=== PATIENT | male | born 2000 | race Caucasian/White ===

== ENCOUNTER 2018-03-31 05:50 | Observation (INO) ==
--- OUTSIDE RECORDS SUMMARY | 2018-03-31 06:25 | External Medical Summary | Continuity of Care Document ---
:2000 Author Organization [facility] Allergies Active Description Code Type Severity Reaction Onset Reported/ Identified Relationship Clinical to Patient Status Yes No Known NKMA N/A N/A 04/11/2014 Medication Allergies Medications Medication Packaging Start Stop Route Dosage Sig Date Date 1 caps 02/29/20 Oral 70 mg 1 lisdexamfetamine( 4 14 caps, Oral, Vyvanse 70 mg qAM, take 5-7 oral capsule) days a week as needed, 30 caps 1 caps 04/07/20 Oral 70 mg 1 lisdexamfetamine( 4 14 caps, Oral, Vyvanse 70 mg qAM, take 5-7 oral capsule) days a week as needed, 30 caps 1 caps 04/11/20 Oral 70 mg 1 lisdexamfetamine( 4 14 caps, Oral, Vyvanse 70 mg qAM, take 5-7 oral capsule) days a week as needed, 30 caps 1 sprays Nasal 1 mometasone 4 sprays, nasal(Nasonex 50 Nasal, Daily, mcg/inh nasal 17 g, PRN: as spray) needed for allergy symptoms 09/19/19 albuterol(Ventoli 4 15 See n HFA 90 mcg/inh Instructions, inhalation 4-6 puff by aerosol) inhalation every 3-4 hrs, 2 Each 1 caps 05/15/20 Oral 70 mg 1 lisdexamfetamine( 4 14 caps, Oral, Vyvanse 70 mg qAM, take 5-7 oral capsule) days a week as needed, 30 caps 09/19/19 methylphenidate(m 4 15 See ethylphenidate 5 Instructions, mg oral tablet) 1 tabs Orally at 6 pm, 30 tabs 1 caps 06/14/20 Oral 70 mg 1 lisdexamfetamine( 4 14 caps, Oral, Vyvanse 70 mg qAM, take 5-7 oral capsule) days a week as needed, 30 caps 2 puffs 02/29/20 Inhalation 2 albuterol(Ventoli 5 16 puffs, n HFA 90 mcg/inh Inhalation, inhalation q4hr, 2 Each, aerosol) 1 Refill(s) 1 tabs 09/10/19 Oral 1 dextromethorphan- 5 16 tabs, Oral, guaiFENesin(Mucin q12hr ex DM) 09/10/19 Oral 30 mg dextromethorphan( 5 16 30 mg, Oral, DayQuil Cough) q8hr 1 tabs 01/12/20 Oral 1 amoxicillin-clavu 5 15 tabs, Oral, lanate(Augmentin q12hr, 20 875 mg-125 mg tabs oral tablet) 1 caps 09/24/19 Oral 70 mg lisdexamfetamine( 6 16 70 mg=1 caps, Vyvanse 70 mg Oral, qAM, 7 oral capsule) caps, 0 Refill(s) 1 caps 04/10/20 Oral 70 mg lisdexamfetamine( 6 16 70 mg=1 caps, Vyvanse 70 mg Oral, qAM, 30 oral capsule) caps, 0 Refill(s) 0.5 mL 02/29/20 IntraMuscular meningococcal 6 16 0.5 mL, conjugate IntraMuscular vaccine(Menveo , Once intramuscular injection) 0.5 mL 02/29/20 IntraMuscular tetanus/diphth/pe 6 16 0.5 mL, rtuss (Tdap) IntraMuscular adult/adol(tetanu , Once s/diphth/pertuss (Tdap) adult/adol 5 units-2.5 units-18.5 mcg/0.5 mL intramuscular suspension) 2 puffs Inhalation 2 albuterol(Ventoli 6 puffs, n HFA 90 mcg/inh Inhalation, inhalation q6hr, 1 Each, aerosol) 1 Refill(s) 1 caps 08/26/19 Oral 70 mg lisdexamfetamine( 6 17 70 mg=1 caps, Vyvanse 70 mg Oral, qAM, 30 oral capsule) caps, 0 Refill(s) 1 caps 08/26/19 Oral 70 mg lisdexamfetamine( 7 17 70 mg=1 caps, Vyvanse 70 mg Oral, qAM, oral capsule) for 30 days, 30 caps, 0 Refill(s) 1 caps 10/08/19 Oral 70 mg lisdexamfetamine( 7 17 70 mg=1 caps, Vyvanse 70 mg Oral, qAM, oral capsule) for 30 days, 30 caps, 0 Refill(s) 2 tabs 09/09/19 Oral 40 mg predniSONE(predni 7 17 40 mg=2 tabs, SONE 20 mg oral Oral, Daily, tablet) for 5 days, 10 tabs, 0 Refill(s) 1 packets 09/04/19 Oral 1 azithromycin(Zith 7 17 packets, romax 250 mg oral Oral, Once, tablet) as directed on package labeling, 6 tabs, 0 Refill(s) 2 puffs Inhalation 2 albuterol(Ventoli 7 puffs, n HFA 90 mcg/inh Inhalation, inhalation q4hr, PRN: as aerosol) needed for wheezing, 1 inhalers, 3 Refill(s) 1 caps 03/10/20 Oral 70 mg lisdexamfetamine( 7 17 70 mg=1 caps, Vyvanse 70 mg Oral, qAM, oral capsule) for 30 days, 30 caps, 0 Refill(s) 1 caps 06/12/20 Oral 70 mg lisdexamfetamine( 7 17 70 mg=1 caps, Vyvanse 70 mg Oral, qAM, oral capsule) for 30 days, 30 caps, 0 Refill(s) 1 caps 07/12/20 Oral 70 mg lisdexamfetamine( 7 17 70 mg=1 caps, Vyvanse 70 mg Oral, qAM, oral capsule) for 30 days, 30 caps, 0 Refill(s) Problems Date Dx Attending Type Code Diagnosis Diagnosed By Coded 07/08/2016 Benito Javed Final 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 07/08/2016 Benito Javed Final J00 Acute nasopharyngitis [common cold] 08/26/2016 Benito Javed Final F90.8 Attention-deficit hyperactivity disorder, other type 09/04/2016 Benito Javed Final H66.91 Otitis media, unspecified, right ear 09/04/2016 Benito Javed Final J20.8 Acute bronchitis due to other specified organisms 09/04/2016 Benito Javed Final J45.40 Moderate persistent asthma, uncomplicated 01/12/2017 Benito Javed Final 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 04094 Immunization 02/29/2016 administration (includes percutaneous, intradermal, subcutaneous, or intramuscular injections); each additional vaccine (single or combination vaccine/toxoid) (List separately in addition 02492 Tetanus, 02/29/2016 diphtheria toxoids and acellular pertussis vaccine (Tdap), when administered to individuals 7 years or older, for intramuscular use 37202 Meningococcal 02/29/2016 conjugate vaccine, serogroups A, C, Y and W-135, quadrivalent (MenACWY), for intramuscular use 81307 Office or 02/29/2016 other outpatient visit for the evaluation and management of an established patient, which requires at least 2 of these 3 armstrong components: A detailed history; A detailed examination; Medical d 77402 Office or 07/08/2016 other outpatient visit for the evaluation and management of an established patient, which requires at least 2 of these 3 armstrong components: A detailed history; A detailed examination; Medical d 45745 Office or 08/26/2016 other outpatient visit for the evaluation and management of an established patient, which requires at least 2 of these 3 armstrong components: An expanded problem focused history; An expanded prob 71511 Office or 09/04/2016 other outpatient visit for the evaluation and management of an established patient, which requires at least 2 of these 3 armstrong components: A detailed history; A detailed examination; Medical d 57355 Office or 01/12/2017 other outpatient visit for the evaluation and management of an established patient, which requires at least 2 of these 3 armstrong components: An expanded problem focused history; An expanded prob 90919 Office or 06/12/2017 other outpatient visit for the evaluation and management of an established patient, which requires at least 2 of these 3 armstrong components: A detailed history; A detailed examination; Medical d <section xmlns="urn:[email or web address]-org:v3" xmlns:xsi="[email or web address]/ 2001/XMLSchema-instance"> <templateId root=" 2.16.840.1.837401.10.20.22.2.3" /> <templateId root=" 2.16.840.1.799494.10.20.22.2.3.1" /> <code codeSystemName=" LOINC" codeSystem="2.16.840.1.322835.6.1" code="33883-1&quot ; displayName="Results" /> <title>Results</title> &lt ;text> <table> <thead> <tr> <th& gt;Test</th> <th>Result</th> <th>Range </th> </tr> </thead> <tbody> &lt ;tr> <th colspan="10">GONORRHOEA DNA BY PCR - CHLAMYDIA DNA BY PCR - 07/11/15 19:40</th> </tr> < tr> <td>Microbiology</td> <td></td&gt ; <td /> </tr> <tr> <th colspan="10">HIV - 07/11/15 20:45</th> </tr> <tr> <td>AB HIV 1 2</td> <td> NEGATIVE </td> <td>NEGATIVE</td> </tr> <tr> <td>HIV 1 P24 AG</td> <td> NEGATIVE </td> <td>NEGATIVE</td> </tr> <tr> <th colspan="10">RAPID PLASMA REAGIN - 08:24</th> </tr> <tr> <td> RAPID PLASMA REAGIN</td> <td>NONREACTIVE </td> <td>NONREACTIVE</td> </tr> </tbody> & lt;/table> </text> <entry> <organizer moodCode="EVN& quot; classCode="BATTERY"> <templateId root=" [id number]2.4.1" /> <id nullFlavor="NA&quot ; /> <code codeSystem="local" code="GC" displayName="GONORRHOEA DNA BY PCR - CHLAMYDIA DNA BY PCR" /> <statusCode code="completed" /> <component> & lt;observation moodCode="EVN" classCode="OBS"> & lt;templateId root="2.16.840.1.443763.10.20.22.4.2" /> < id nullFlavor="NA" /> <code codeSystem="local&quot ; code="MB" displayName="Microbiology" /> < statusCode code="completed" /> <effectiveTime value=& quot;[id number]" /> <value xsi:type="ST" value=& quot;<pre><b>GONORRHOEA DNA BY PCR - CHLAMYDIA DNA BY PCR</b> See BelowGONORRHOEA DNA BY PCR(F) Luis F Date/Time: 07/11/2015 19:40 Teja Date/Time: 07/12/2015 14:13SOURCE: URINESPEC DESC: [facility] [place] [id number] BelowCHLAMYDIA DNA BY PCR(F) Luis F Date/Time: 07/11/2015 19:40 Teja Date/Time: 07/12/2015 14:13SOURCE: URINESPEC DESC: [facility] [place] [id number]</pre>" /> <referenceRange&gt ; <observationRange> <text /> &lt ;/observationRange> </referenceRange> </observation& gt; </component> </organizer> </entry> <entry&gt ; <organizer moodCode="EVN" classCode="BATTERY"> <templateId root="2.16.840.1.322304.10.20.22.4.1" /> & lt;id nullFlavor="NA" /> <code codeSystem="local&quot ; code="HIV" displayName="HIV" /> <statusCode code="completed" /> <component> <observation moodCode="EVN" classCode="OBS"> <templateId root="2.16.840.1.103876.10.20.22.4.2" /> <id nullFlavor ="NA" /> <code codeSystem="local" code=" [id number]" displayName="AB HIV 1 2" /> < statusCode code="completed" /> <effectiveTime value=& quot;[id number]" /> <value unit="" xsi:type=& quot;PQ"value="NEGATIVE" /> <referenceRange> <observationRange> <text>NEGATIVE</text&gt ; </observationRange> </referenceRange> & lt;/observation> </component> <component> < observation moodCode="EVN" classCode="OBS"> < templateId root="2.16.840.1.063742.10..22.4.2" /> < id nullFlavor="NA" /> <code codeSystem="local" code=& quot;[id number]" displayName="HIV 1 P24 AG" /> < statusCode code="completed" /> <effectiveTime value=& quot;[id number]" /> <value unit="" xsi:type=& quot;PQ" value="NEGATIVE" /> <referenceRange> <observationRange> <text>NEGATIVE</text> </observationRange> </referenceRange> </ observation> </component> </organizer> </entry> & lt;entry> <organizer moodCode="EVN" classCode="BATTERY& quot;> <templateId root="2.16.840.1.831878.10.20.22.4.1" /& gt; <id nullFlavor="NA" /> <code codeSystem=" local" code="RPR" displayName="RAPID PLASMA REAGIN" /& gt; <statusCode code="completed" /> <component> <observation moodCode="EVN" classCode="OBS"> <templateId root="2.16.840.1.419362.10.20.22.4.2" /> <id nullFlavor="NA" /> <code codeSystem=& quot;local" code="RPR" displayName="RAPID PLASMA REAGIN&quot ; /> <statusCode code="completed" /> < effectiveTime value="[id number]" /> <value unit=&quot ;" xsi:type="PQ" value="NONREACTIVE" /> &lt ;referenceRange> <observationRange> <text> NONREACTIVE</text> </observationRange> </ referenceRange> </observation> </component> </ organizer> </entry></section> Encounters ACCT No. Visit Discharge Status Pt. Type Provider Facility Loc./Unit Complaint Date/Time [id number] 06/12/2017 06/12/2017 [facility] Outpatient [facility], [facility] med check 67 08:27:00 23:59:00 [facility] [id number] 01/12/2017 01/12/2017 [facility] Outpatient [facility], [facility] ADHD F/U 39 09:42:00 23:59:00 [facility] [id number] 09/04/2016 09/04/2016 [facility] Outpatient [facility], [facility] ear 12 13:53:00 23:59:[address] [facility] infection. Clinic URI [id number] 08/26/2016 08/26/2016 [facility] Out[facility], [facility] TCPA ADD 66 16:10:00 23:59:00 [facility] [id number] 07/08/2016 07/08/2016 [facility] Outpatient [facility]ck, [facility] NPV 01 08:27:00 23:59:00 [facility] [id number] 02/29/2016 02/29/2016 [facility] Outpatient Patron, [facility] med check 73 14:37:00 23:59:00 [facility] [id number] 09/10/2015 09/10/2015 [facility] Outpatient [facility]ron, [facility] Med check 99 10:52:00 23:59:00 [facility] [id number] 09/19/2014 09/19/2014 [facility] Outpatient Patron, [facility] Med check 16 10:38:00 23:59:00 [facility] [id number] 06/13/2017 Document 1813 05:18:13 Registrati on [id number] 01/02/2015 Document 58 09:18:00 Registrati on [id number] 12/22/2014 Document 40 14:32:00 Registrati on [id number] 11/28/2014 Document 03 09:10:00 Registrati on [id number] 07/11/2015 07/11/2015 DIS Outpatient [facility] 23 17:53:00 17:53:00 Nancy ECHOLS [id number] 01/13/2017 Document 1630 05:16:30 Registrati on [id number] 09/05/2016 Document 1702 05:17:02 Registrati on [id number] 08/27/2016 Document 1756 05:17:56 Registrati on [id number] 07/09/2016 Document 1639 05:16:39 Registrati on [id number] 03/01/2016 Document 1548 05:15:48 Registrati on [id number] 09/11/2015 Document 1737 05:17:37 Registrati on [id number] 06/13/2015 Document 2253 12:22:53 Registrati on [id number] 06/13/2015 Document 0858 12:08:58 Registrati on [id number] 06/13/2015 Document 0302 11:03:02 Registrati on [id number] 06/13/2015 Document 1150 10:11:50 Registrati on [id number] 06/13/2015 Document 5413 09:54:13 Registrati on [id number] 06/13/2015 Document 3304 09:33:04 Registrati on [id number] 06/13/2015 Document 1027 09:10:27 Registrati on
[2018-03-31] MEDS ORDERED: MORPHINE SULFATE 4mg INJECTION IVP ONE (06:36)
[2018-03-31] MEDS ORDERED: ONDANSETRON 4 MG/2 ML INJECTION IVP ONE (06:36)
--- NOTE | 2018-03-31 06:43 | Emergency Department Report ---
General Adult HPI - General Chief complaint: Abdominal Pain Stated complaint: abd pain Time Seen by Provider: 03/31/18 06:10 Source: patient Mode of arrival: ambulatory Limitations: no limitations - History of Present Illness HPI narrative: 18 M presents to the emergency department for reevaluation of upper abdominal discomfort. Patient states that he has been expressing intermittent symptoms for the past month while at home. Symptoms will normally last around 2-3 hours and then resolve on their own. Patient does not that he did eat pizza and cheese burgers yesterday afternoon/evening. Pain is rated at 8/10. Pain is sharp. Pain improves with analgesia. He was at home when his symptoms began around 10 PM yesterday evening. Symptoms have been persistent in nature since onset. No other complaints or associated symptoms. Patient describes the pain as located in the epigastric region. He denies any trauma, travel, or poorly prepared food. - Related Data Home Medications Medication Instructions Recorded Confirmed Albuterol Sulfate 1.25 mg IH PRN #0 01/26/10 03/31/18 Lisdexamfetamine Dimesylate 70 mg PO DAILY #0 05/23/03/31/18 [Vyvanse] Previous Rx's Medication Instructions Recorded Hydrocodone/APAP 5/325 [[employer] 1 tab PO Q6H PRN #20 tab 03/31/18 5/325] Allergies Allergy/AdvReac Type Severity Reaction Status Date / Time No Known Drug Allergies Allergy Unknown Unverified 03/31/18 07:16 Review of Systems Constitutional: Denies: fever, chills Eyes: Denies: eye pain, vision change ENT: Denies: ear pain, throat pain Cardiovascular: Denies: chest pain, palpitations Respiratory: Denies: cough, dyspnea Gastrointestinal: Reports: abdominal pain. Denies: nausea, vomiting, diarrhea Genitourinary: Denies: urgency, dysuria Musculoskeletal: Denies: back pain, arthralgia Integumentary: Denies: erythema, rash Neurological: Denies: headache, numbness, paresthesias Psychiatric: Denies: anxiety, depression Endocrine: Denies: polydipsia, polyuria Hematological/Lymphatic: Denies: easy bruising, lymphadenopathy Allergic/Immunologic: Denies: facial swelling, urticaria PFSH Medical History Updates: ADHD Surgical History: Denied by patient. Family History: Reviewed and Noncontributory. - Social History Smoking status: Current every day smoker Substance use type: does not use Alcohol intake frequency: does not drink Physical Exam - Limitations Limitations: no limitations - General General appearance: alert, in no apparent distress - Normal Exams: Head:: Normocephalic without trauma Eyes:: Pupils are PERRLA w/ EOMI, No scleral icterus, irritation, or foreign bodies noted ENMT:: No facial trauma, nasal exudates, pharyngeal erythema, or exudates are noted Dental: No fractured, loose, or missing teeth noted Neck:: Full range of motion, without adenopathy, JVD, bruits or thyromegaly Chest/Respirations:: Clear all howell, with good airflow, and symmetry bilaterally Cardiovascular:: Regular rate and rhythm, without murmur or gallop, Pulses 2+ all extremities, capillary refill, <2 seconds all extremities Abdomen:: Bowel sounds positive (Soft. Epigastric/right upper quadrant tenderness to palpation without rebound or guarding. No CVAT.), non-distended, no hepatosplenomegaly, masses or bruits noted Lymphatic:: No lymphadenopathy, or lymphedema noted Musculoskeletal:: No tenderness, or deformity noted, good range of motion, all extremities Integumentary:: No rashes, hives, or bruising noted, hair and nails, without abnormality Neurological:: Patient is alert, and oriented, cranial nerves, motor/sensory/ cerebellar, exams w/o gross deficits, to observation Psychiatric:: Patient exhibits, appropriate attention, emotion and affect Course Vital Signs Temperature 97.4 F 03/31/18 05:52 Pulse Rate 83 03/31/18 05:52 Respiratory Rate 22 03/31/18 05:52 Blood Pressure 139/73 03/31/18 05:52 Pulse Oximetry 98 03/31/18 05:52 Temperature 98 F 03/31/18 08:31 Pulse Rate 58 L 03/31/18 08:31 Respiratory Rate 16 03/31/18 08:31 Blood Pressure 128/70 03/31/18 08:31 Pulse Oximetry 100 03/31/18 08:31 Medical Decision Making - MDM Narrative Medical decision making narrative: Labs / imaging were discussed in detail with the patient and family and questions are answered. Patient was given parental narcotic and antiemetic medication intravenously with improvement of symptoms. Patient was made nothing by mouth in the emergency department. He was given Invanz 1 g intravenously times one. Patient was discussed with Dr. Abdul who agrees to accept the patient to his service for further evaluation and treatment. Patient and family are in agreement with using Dr. Abdul as the general surgeon. Patient is admitted to the service of general surgery in improved condition. No further orders from accepting physician who is in agreement with the current plan of management. - Differential Diagnosis Cholelithiasis, acute cholecystitis, metabolic disorder, pancreatitis - Lab Data Lab Results 03/31/18 03/31/18 Range/Units 00:08 06:55 Troponin I < 0.012 (0-0.12) ng/ml Specimen Hemolysis < 15 (0-25) Ur Collection Type Urine, void-cc/notcc Urine Color Yellow (YELLOW) Urine Clarity Cloudy Urine pH 7.0 (5.0-8.0) Ur Specific [place] 1.010 L (1.015-1.025) Urine Protein Negative (NEGATIVE) Urine Glucose (UA) Negative (NEGATIVE) Urine Ketones Negative (NEGATIVE) Urine Occult Blood 1+ A (NEGATIVE) Urine Nitrate Negative (NEGATIVE) Urine Bilirubin Negative (NEGATIVE) Urine Urobilinogen 0.2 (NORMAL) EU/DL Ur Leukocyte Esterase Negative (NEGATIVE) Urine RBC 1-3 (0-3) /HPF Urine WBC None seen (0-5) /HPF Ur Squamous Epith Cells 0-5 Amorphous Sediment Many Urine Bacteria Trace H (NEGATIVE) Ur Culture Indicated? Cult not indicated - Radiology Data RUQ US - findings concerning for acute cholecystitis. Recommend surgical consultation. - EKG Data EKG #1 EKG results narrative: Sinus rhythm. 68 bpm. No STEMI. Early repolarization noted. Disposition Clinical Impression: Acute cholecystitis Disposition: 02 To [facility] Condition: Improved Time of Disposition: 07:46 - Seen By: physician
[2018-03-31] MEDS: SALINE FLUSH 10ml SYRINGE IV PRN ×2 (06:46→06:48)
--- NOTE | 2018-03-31 07:50 | Ultrasound Report ---
Indication: Epigastric Pain PROCEDURE: US gall bladder: Encounter: Initial Comparison: None Technique: Grayscale and color Doppler sonographic imaging of the right upper quadrant of the abdomen was performed. Findings: Hepatic parenchyma is homogeneous without evidence for focal mass. The gallbladder is abnormal with numerous shadowing gallstones and wall thickening and edema up to 5 mm. Sonographic Dye's sign cannot be well evaluated due to pain medication. Both the intra and extrahepatic biliary system are of normal caliber with the common duct measuring 5 mm in dimension. Visualized portions of the head and body of the pancreas are unremarkable. The right kidney is present without collecting system dilatation. The right kidney measures 11.6 cm in length. Impression: Acute cholecystitis. Surgical consultation is recommended. .
[2018-03-31] MEDS ORDERED: FentaNYL 100 MCG/2 ML INJECTION IVP ONE ×2 (07:52→08:01)
[2018-03-31] MEDS ORDERED: ERTAPENEM 1 G in NS 100 ML IV ONE (08:01)
[2018-03-31] MEDS ORDERED: NS FLUSH BAG 500ml IV PRN (08:22)
[2018-03-31] MEDS ORDERED: ONDANSETRON 4 MG/2 ML INJECTION IVP PRN ×2 (09:21→16:20)
[2018-03-31] MEDS ORDERED: D5-1/2NS with KCL 20mEq 1,000 ML IV SCH (09:21)
[2018-03-31] MEDS ORDERED: PROMETHAZINE 25 MG INJECTION IVP PRN (09:21)
[2018-03-31] MEDS ORDERED: MORPHINE SULFATE 10mg/ml INJECTION IV PRN (09:21)
[2018-03-31 09:25] VITALS: BMI 38.9
[2018-03-31] MEDS: HYDROMORPHONE 2 MG/ML INJECTION IVP PRN ×3 (09:53→20:06)
--- NOTE | 2018-03-31 10:42 | History and Physical ---
HISTORY OF PRESENT ILLNESS This patient is 18 years old. This patient developed the onset of some right upper quadrant abdominal pain about one month ago. He has had intermittent right upper quadrant abdominal pain since then. The episodes of intermittent right upper quadrant abdominal pain have usually lasted for around two or three hours and then resolve on their own. The patient did experience the onset of a more severe episode of right upper quadrant abdominal pain at 10:00 p.m. on 02/2018. The patient did come to [facility] emergency room during the night on 03/30/2018. He underwent evaluation. He had a CT scan. He then went home. He then returned back to the emergency room again for further evaluation. A gallbladder sonogram was performed at the time of the second emergency room visit at [facility] emergency room. This gallbladder sonogram was performed on 03/31/2018. The gallbladder sonogram shows findings consistent with acute cholecystitis. The patient has received intravenous analgesics at the emergency room and the pain has been so severe that it has been difficult to control the right upper quadrant abdominal pain with the intravenous narcotic analgesics. The patient continues to have some right upper quadrant abdominal pain. He has nausea. He has had no vomiting. He has had no diarrhea. He has had no radiation of pain to his back. PAST MEDICAL HISTORY Previous Operations: None. Other Current Medical Problems: 1. Asthma. 2. Attention deficit hyperactivity disorder. CURRENT MEDICATIONS 1. Vyvanse 70 mg one capsule p.o. daily in a.m. 2. Albuterol inhaler used p.r.n. The patient states that he seldom uses this. ALLERGY HISTORY The patient states he has no known allergies to medications. PHYSICAL EXAMINATION VITAL SIGNS: Temperature is 98 degrees Fahrenheit oral. Pulse is 58. Respiratory rate is 16. Blood pressure is 128/70. Oxygen saturation is 100% on room air. HEENT: No abnormalities noted. NECK: No neck masses. CHEST: Lung sounds are clear. HEART: Regular rhythm. No murmurs. ABDOMEN: The patient does have right upper quadrant abdominal tenderness. No abdominal masses. No old incision scars. RECTUM: Exam deferred. SKIN: No jaundice. EXTREMITIES: No abnormalities noted.. LABORATORY DATA White blood cell count is 10,700 with no left shift. Total bilirubin is 0.5. AST is 64. ALT is 77. Alkaline phosphatase is 72. IMAGING DATA The patient did have a gallbladder sonogram performed on 03/31/2018. The gallbladder contains numerous gallstones. There is wall thickening and edema up to 5 mm at the gallbladder. There is no dilation of the intrahepatic or extrahepatic bile ducts. The gallbladder sonogram was interpreted by the radiologist as being consistent with acute cholecystitis. IMPRESSION 1. Acute cholecystitis and cholelithiasis. 2. Asthma. 3. Attention deficit hyperactivity disorder. PATIENT EDUCATION I did inform the patient of the nature of the laparoscopic cholecystectomy operation. Expected benefits were reviewed. Alternatives were reviewed such as antibiotic treatment for the acute cholecystitis. Potential risks and complications of laparoscopic cholecystectomy were reviewed with the patient including anesthetic risk, bleeding, infection, poor wound healing and injury to intraabdominal structures such as the liver, the common duct, the duodenum and loops of large and small intestine. The patient was told there is a chance that any laparoscopic cholecystectomy operation might need to be converted over to an open laparotomy operation. Questions were solicited from the patient. All of his questions were answered. The patient does wish to proceed. PLAN Multiport robotic laparoscopic cholecystectomy by Dr. Abdul at [facility] for treatment of acute cholecystitis and cholelithiasis. ELOISA
[2018-03-31] MEDS ORDERED: MEPERIDINE 100 MG/ML INJECTION IVP PRN (12:48)
--- NOTE | 2018-03-31 12:48 | Anesthesia Preoperative Report ---
Anesthesia Preoperative Record - Date and Time Date: 03/31/18 Preoperative Diagnosis: Acute Cholecystitis Allergies/Adverse Reactions: Allergies Allergy/AdvReac Type Severity Reaction Status Date / Time No Known Drug Allergies Allergy Unknown Unverified 03/31/18 09:28 - Vital Signs Vital Signs: Temperature 97.6 F 03/31/18 09:21 Pulse Rate 62 03/31/18 09:21 Respiratory Rate 16 03/31/18 12:13 Blood Pressure 130/67 03/31/18 09:21 Pulse Oximetry 98 03/31/18 09:21 Height and Weight: Height 5 ft 8 in Weight 116 kg Body Mass Index 38.9 - Medications Inpatient Medications: Current Medications Hydromorphone HCl (Dilaudid) 0.5 - 1 mg IVP Q1H PRN PRN Reason: Pain Last Admin: 03/31/18 12:13 Dose: 1 mg Potassium Chloride/Dextrose/Sod Cl (D5-1/2ns With Kcl 20meq Premix) 1,000 mls @ 100 mls/hr IV .Q10H SREEKANTH Last Admin: 03/31/18 09:53 Dose: 100 mls/hr Ondansetron HCl (Zofran) 4 - 8 mg IVP Q6H PRN PRN Reason: Nausea &/or vomiting Last Admin: 03/31/18 10:03 Dose: 4 mg Promethazine HCl (Phenergan Inj) 12.5 - 25 mg IVP Q6H PRN PRN Reason: Nausea &/or vomiting Sodium Chloride (Iv Flush) 10 ml IV O PRN PRN Reason: Flushing Last Admin: 03/31/18 06:48 Dose: 10 ml Home Medications: Home Medications Medication Instructions Recorded Confirmed Type Albuterol Sulfate 1.25 mg IH PRN #0 01/26/10 03/31/18 History Lisdexamfetamine Dimesylate 70 mg PO DAILY #0 05/23/12 03/31/18 History [Vyvanse] Hydrocodone/APAP 5/325 [[place] 1 tab PO Q6H PRN #20 tab 03/31/18 03/31/18 Rx 5/325] Is Patient on Beta Win?: No - Medical History Respiratory: Reports: Asthma - Surgical History Hx Family Anesthesia Reaction: No History of Motion Sickness: No - Social History Smoking Status: Current every day smoker Substance Use Type: does not use Alcohol Intake Frequency: does not drink - Pertinent Findings Laboratory: Cardiac Enzymes 03/31/18 Range/Units 06:55 Troponin I < 0.012 (0-0.12) ng/ml Urine 03/31/18 Range/Units 00:08 Urine Color Yellow (YELLOW) Urine Clarity Cloudy Urine pH 7.0 (5.0-8.0) Ur Specific Secor 1.010 L (1.015-1.025) Urine Protein Negative (NEGATIVE) Urine Glucose (UA) Negative (NEGATIVE) - Physical Exam Respiratory Exam: Present: lungs clear - Airway Assessment Mallampati Score: I - ASA ASA Score: 1, 2, E - Discussion Discussion: Discussed risks/options/alternatives of anesthesia and questions answered. Patient consents. Nursing pain assessment noted. Attestation Statement: Prior to the delivery of any anesthetic medication, I examined the patient, developed the plan, obtained the patient's consent and discussed the risk and benefits of the procedure with the patient/guardian. - Additional Information Seen by Anesthesia: Yes
[2018-03-31] MEDS: LR 1,000 ML IV SCH ×3 (13:14→18:15)
[2018-03-31] MEDS ORDERED: SALINE FLUSH 10ml SYRINGE ONE (13:34)
[2018-03-31] MEDS ORDERED: BUPIVACAINE 0.25% (2.5mg/ml) PF 30ml INJECTION ONE ×3 (13:34→14:33)
[2018-03-31] MEDS ORDERED: INDOCYANINE GREEN 25mg INJECTION ONE (13:34)
[2018-03-31] MEDS ORDERED: SALINE FLUSH 10ml SYRINGE IV ONE (14:00)
[2018-03-31] MEDS ORDERED: INDOCYANINE GREEN 25mg INJECTION IVP ONE (14:00)
[2018-03-31] MEDS ORDERED: FentaNYL 100 MCG/2 ML INJECTION ONE (14:05)
[2018-03-31] MEDS ORDERED: MIDAZOLAM 2mg/2ml INJECTION ONE (14:05)
[2018-03-31] MEDS ORDERED: ONDANSETRON 4 MG/2 ML INJECTION ONE (14:05)
[2018-03-31] MEDS ORDERED: LIDOCAINE 2% (100mg/5mL) 5ml PF SDV ONE (14:05)
[2018-03-31] MEDS ORDERED: PROPOFOL 20 ML ONE (14:05)
[2018-03-31] MEDS ORDERED: DEXAMETHASONE 4 MG/ML INJECTION ONE (14:05)
[2018-03-31] MEDS ORDERED: ROCURONIUM 50 MG/5 ML INJECTION IVP ONE (14:05)
[2018-03-31] MEDS ORDERED: HYDROMORPHONE 2 MG/ML INJECTION ONE (14:07)
[2018-03-31] MEDS ORDERED: BUPIVACAINE 0.25% (2.5mg/ml) PF 30ml INJECTION ID ONE (14:21)
[2018-03-31] MEDS ORDERED: EPHEDRINE 50mg/ml INJECTION ONE (14:32)
[2018-03-31] MEDS ORDERED: SUGAMMADEX 200mg/2ml INJECTION IVP ONE (14:32)
--- NOTE | 2018-03-31 16:12 | General Surgery Procedure Note ---
Date of Procedure: 03/31/18 Surgeon: Franko Postoperative Diagnosis: Acute cholecystitis Procedure: Robotic laparoscopic cholecystectomy Estimated Blood Loss: See Anesthesia Record.
[2018-03-31] MEDS ORDERED: HYDROMORPHONE 2 MG/ML INJECTION IVP PRN (16:20)
--- NOTE | 2018-03-31 16:59 | Anesthesia Postoperative Note ---
- Date and Time Date: 03/31/18 Time: 16:59 - Status Patient Participated in Evaluation: Patient Participated in Person Vital Signs: Temperature 97.8 F 03/31/18 16:15 Pulse Rate 77 03/31/18 16:55 Respiratory Rate 17 03/31/18 16:55 Blood Pressure 113/58 03/31/18 16:55 Pulse Oximetry 96 03/31/18 16:55 Respiratory Function: Airway Patent Cardiovascular Function: Regular Pulse EKG: Sinus Rhythm Mental Status: Alert and Oriented Pain Intensity: 0 Hydration: IV Infusing Nausea/Vomiting: None Complications During Recover: None Apparent - Follow-Up Instructions Instructions: Per Surgeon
[2018-03-31] MEDS ORDERED: ALBUTEROL SULFATE 1.25 MG IH SCH (17:19)
[2018-03-31] MEDS ORDERED: ALBUTEROL 2.5mg/3ml (0.083%) NEB AEROSOL PRN (17:30)
--- NOTE | 2018-03-31 18:51 | Operative Note ---
DATE OF OPERATION 03/31/2018 PREOPERATIVE DIAGNOSIS Acute cholecystitis and cholelithiasis. POSTOPERATIVE DIAGNOSIS Acute cholecystitis and cholelithiasis. OPERATION Multiport robotic laparoscopic cholecystectomy. SURGEON Dr. Abdul ANESTHESIA General. ASA Class 2E FINDINGS The gallbladder appeared be acutely inflamed. The gallbladder was edematous and the gallbladder wall was thickened. The gallbladder was distended. The gallbladder did contain multiple gallstones. The liver appeared normal. The cystic duct was normal caliber. DESCRIPTION OF OPERATION The patient did have injectable indocyanine green dye administered intravenously preoperatively. The patient was placed in supine position on the operating table. General anesthesia was satisfactorily induced. The abdomen was prepped and draped in routine sterile fashion. Bupivacaine 0.25% without epinephrine was infiltrated into the skin and underlying tissue at an infraumbilical incision site. An infraumbilical incision was made. Veress needle was inserted into the peritoneal cavity through the incision. Pneumoperitoneum was established with carbon dioxide. The Veress needle was removed. A 12-mm camera port was placed at the infraumbilical incision. A 12- mm 30-degree da Brunilda laparoscope was inserted at the infraumbilical port. The patient was placed in reverse Trendelenburg position. The right side of the table was tilted up. The skin and underlying structures at the abdominal wall were infiltrated with bupivacaine at a port site at the left upper quadrant of the abdomen at the midclavicular line. An incision was made at this site and an 8-mm da Brunilda instrument port was placed at this incision. The skin and underlying abdominal wall structures were infiltrated with bupivacaine at another incision site at the left side of the abdomen. An incision was made at this site and an [employer] assistant port was placed at this incision. The skin and underlying abdominal wall structures were infiltrated with bupivacaine at a port site at the right upper quadrant of the abdomen. An incision was made at this site and an 8-mm da Brunilda instrument port was placed at this incision. The skin and underlying abdominal wall structures were infiltrated with bupivacaine at another port site at a more lateral location at the right side of the abdomen. An incision was made at this site and another 8-mm da Brunilda instrument port was placed at this incision. An aspirating cannula was introduced through one of the right upper quadrant ports and syringe was used with this aspirating cannula to aspirate some fluid from the gallbladder to decrease the distention at the gallbladder. This fluid was submitted to the laboratory for culture and sensitivity studies. The da Brunilda robotic system was brought up to the operating table. The da Brunilda robotic system was docked to the camera port and the instrument ports. The da Brunilda 12-mm 30-degree laparoscope was inserted at the camera port. A [place] bipolar forceps was inserted at the 8-mm instrument port at the left upper quadrant of the abdomen associated with instrument arm #1. A Cadiere forceps was inserted at the 8-mm instrument port at the right upper quadrant of the abdomen associated with instrument arm #2. A ProGrasp forceps was inserted at the 8-mm instrument port at the right lateral location at the abdomen associated with instrument arm #3. These instruments were all placed into a position adjacent to the gallbladder. The surgeon then went from the patient's side at the operating table to the surgeon console. The ProGrasp forceps with instrument arm #3 was used to grasp the fundus of the gallbladder and elevate the gallbladder and reflect the liver up superiorly towards the right diaphragm. The infundibulum of the gallbladder was grasped with the Cadiere forceps with instrument arm #2. Dissection was performed at the hepatocystic triangle. The cystic duct was dissected out and identified. The cystic artery was dissected out and identified. An attempt was made to demonstrate the cystic duct with Firefly fluorescence imaging at this time. Dissection was performed at the hepatocystic triangle until the only two structures remaining were the cystic duct and the cystic artery. A critical view of safety was achieved at this time. The hepatocystic triangle was cleared of all the fatty and fibrous tissue until the only two structures remaining were the cystic duct and the cystic artery. Three of the Hem-o-miriam clips were then applied to the cystic duct at the junction of the cystic duct and the gallbladder. The cystic duct was divided between the Hem-o-miriam clips with curved dissecting scissors. Two of the Hem-o-miriam clips were left in place on the cystic duct stump. Two of the Hem-o-miriam clips were applied to the cystic artery. The cystic artery was divided between the Hem-o-miriam clips with the monopolar curved scissors. The monopolar curved scissors was then used to dissect the gallbladder out of the gallbladder bed. Tissue was coagulated with the monopolar curved scissors as the gallbladder was being dissected out of the gallbladder bed to maintain hemostasis. The gallbladder was completely dissected out of the gallbladder bed. The gallbladder was placed in a position in the peritoneal cavity along the margin of the liver. The instruments were removed from the instrument ports. The da Brunilda laparoscope was removed from the camera port. The da Brunilda robotic system was undocked from the ports. The surgeon left the surgeon console and returned back to the side of the patient at the operating table. The da Brunilda 8.5-mm 30-degree laparoscope was inserted at the [employer] assistant port. The specimen retrieval pouch was inserted at the camera port. The gallbladder was placed in the specimen retrieval pouch. The specimen retrieval pouch containing the gallbladder was brought out through the infraumbilical incision. The gallbladder was submitted as a specimen for study by the pathologist. The instrument ports were all removed. Carbon dioxide was removed from the peritoneal cavity by desufflation. The fascial layer of the infraumbilical incision was closed with a series of simple interrupted stitches using 0-Vicryl suture. The skin margins were then closed with subcuticular stitches using 4-0 Vicryl suture. Benzoin and 1/4-inch wide Steri-Strips were applied to the incisions. Band-Aids and sterile dressings were applied to the incisions. The patient tolerated the operation well. The patient was transferred from the operating room to the recovery room in satisfactory condition. ELOISA
[2018-04-01] MEDS: HYDROMORPHONE 2 MG/ML INJECTION IVP PRN ×2 (01:21→05:19)
[2018-04-01 04:17] VITALS: O2SAT 98
[2018-04-01] MEDS: LR 1,000 ML IV SCH (08:40)
[2018-04-01] MEDS ORDERED: IBUPROFEN 200 MG TABLET PO PRN (08:47)
[2018-04-01] MEDS ORDERED: ACETAMINOPHEN 500 MG TABLET PO PRN (08:47)
[2018-04-01] MEDS: Oxycodone *IR* 5 MG TABLET PO PRN ×2 (08:59→13:33)
[2018-04-01] MEDS ORDERED: LISDEXAMFETAMINE 70 MG PO SCH (09:00)
--- NOTE | 2018-04-01 11:33 | Progress Note ---
DATE 04/01/2018 POSTOP DAY #1 HISTORY The patient is doing well overall. The patient is tolerating a regular diet. He is ambulating. He has good pain control. PHYSICAL EXAMINATION VITAL SIGNS: Temperature is 97.7 degrees Fahrenheit oral. Pulse is 74. Respiratory rate is 18. Blood pressure is 116/54. Oxygen saturation is 98% on room air. ABDOMEN: All the abdominal incisions look good. IMPRESSION Doing well following multiport robotic laparoscopic cholecystectomy on 2017. PLAN Dismiss patient from [facility] today. DISCHARGE MEDICATIONS 1. Resume medications which the patient was taking prior to admission to the hospital. 2. Tylenol 325 mg 1-2 tablets p.o. every 5 hours p.r.n. pain. 3. Oxycodone 5 mg 1-2 tablets p.o. every 4 hours p.r.n. pain (dispense 40 - no refills). 4. Ibuprofen 200 mg 2-4 tablets p.o. every 6 hours p.r.n. pain. [facility]
[2018-04-01 11:45] VITALS: BP 135/55; PULSE 85; RESP 20; TEMP 98
== END 2018-04-01 14:28 | disposition home or self-care (01) ==
LOC: ED 05:50 → EDHOLD 05:50 → SRG 08:55
PROVIDERS: ADMIT Surgery; ATTEND Surgery